=== PATIENT | female | born 1955 | race Caucasian/White ===

== ENCOUNTER → 2016-10-19 | Outpatient (CLI) | payer OTHER ==
--- NOTE | 2016-10-20 08:42 | MM ---
Reason for exam: screening (asymptomatic). Last mammogram was performed 1 year and 1 month ago. History: Patient is postmenopausal. Family history of premenopausal breast cancer in sister and premenopausal breast cancer in mother. Took estrogen for 6 years 6 months. Physical Findings: A clinical breast exam by your physician is recommended on an annual basis and results should be correlated with mammographic findings. MG Screening Mammo w CAD Bilateral CC and MLO view(s) were taken. Prior study comparison: September 18, 2015, bilateral MG screening mammo w CAD. September 07, 2014, bilateral MG screening mammo w CAD. The breast tissue is heterogeneously dense. This may lower the sensitivity of mammography. There is no discrete abnormality. ASSESSMENT: Negative, BI-RAD 1 RECOMMENDATION: Routine screening mammogram of both breasts in 1 year.
== END | disposition home or self-care (01) ==
LOC: RADMAMWWP 06:55
PROVIDERS: ATTEND Internal Medicine Endocrinology, Diabetes & Metabolism
DX: Z12.31 Encounter for screening mammogram for malignant neoplasm of breast (principal)

== ENCOUNTER → 2017-03-31 | Outpatient (CLI) | payer OTHER ==
[2017-03-31 07:37] LABS: ALT 25 U/L (9-52); AST 14 U/L (14-36); Anion Gap 7 mmol/L; Blood Urea Nitrogen 8 mg/dL (7-17); Calcium 8.9 mg/dL (8.4-10.2); Carbon Dioxide 28 mmol/L (22-30); Chloride 110 mmol/L (98-107); Cholesterol 163 mg/dL (<200); Glucose 103 mg/dL (74-99); HDL Cholesterol 51 mg/dL (40-60); Non-African American GFR(MDRD) >60 (>60 ml/min/1.73 sqM); Potassium 4.5 mmol/L (3.5-5.1); Sodium 145 mmol/L (137-145); Triglycerides 39 mg/dL (<150)
== END | disposition home or self-care (01) ==
LOC: LABWHC1 06:37
PROVIDERS: ATTEND Internal Medicine Endocrinology, Diabetes & Metabolism
DX: E78.00 Pure hypercholesterolemia, unspecified (principal); E06.3 Autoimmune thyroiditis; R73.9 Hyperglycemia, unspecified
CPT/HCPCS: 36415; 80048; 80061; 84436; 84443; 84450; 84460

== ENCOUNTER → 2017-12-07 | Outpatient (CLI) | payer OTHER ==
--- NOTE | 2017-12-08 12:20 | MM ---
Reason for exam: screening (asymptomatic). Last mammogram was performed 1 year and 2 months ago. History: Patient is postmenopausal and history of other cancer. Family history of premenopausal breast cancer in sister and premenopausal breast cancer in mother. Took estrogen for 6 years 6 months. Physical Findings: A clinical breast exam by your physician is recommended on an annual basis and results should be correlated with mammographic findings. MG Screening Mammo w CAD Bilateral CC and MLO view(s) were taken. Prior study comparison: October 19, 2016, bilateral MG screening mammo w CAD. September 18, 2015, bilateral MG screening mammo w CAD. The breast tissue is heterogeneously dense. This may lower the sensitivity of mammography. No suspicious abnormality. No significant changes when compared with prior studies. ASSESSMENT: Negative, BI-RAD 1 RECOMMENDATION: Routine screening mammogram of both breasts in 1 year.
== END ==
LOC: RADMAMWWP 07:03
PROVIDERS: ATTEND Family Medicine
DX: Z12.31 Encounter for screening mammogram for malignant neoplasm of breast (principal)
CPT/HCPCS: 77067

== ENCOUNTER → 2018-12-07 | Outpatient (CLI) | payer OTHER ==
--- NOTE | 2018-12-07 10:22 | CTL ---
EXAMINATION TYPE: CT Low Dose Lung DATE OF EXAM ORDERED: 12/07/2018 HISTORY: History tobacco use. Lung cancer screening CT DLP: 90.[address] CTDI: 2.7 mGy Automated exposure control for dose reduction was used. SCREENING VISIT: 1 COMPARISON: None TECHNIQUE: Low dose computed tomography scan was performed through the chest at 1 mm thick sections a nd reconstructed images in the coronal plane at mm thick sections. CT DIAGNOSTIC QUALITY: Satisfactory FINDINGS: LUNG NODULES: None. Right lung a nodule with a size of 2 mm. Nodule in the right upper lobe visualized with Nodule Type: Solid on image # CT Image slide number 64. LUNGS: COPD: Severity: None Fibrosis: Severity: Mild Lymph nodes: None Other findings: There may be some basilar atelectasis or scarring RIGHT PLEURAL SPACE: Effusion: None Calcification: None Thickening: None Pneumothorax: None LEFT PLEURAL SPACE: Effusion: None Calcification: None Thickening: None Pneumothorax: None HEART: Heart Size: Normal Coronary calcification: None Pericardial effusion: None OTHER FINDINGS: Upper abdomen: Small hiatal hernia Bony thorax: Thoracic spondylosis is present Supraclavicular region: Unremarkable Other: IMPRESSION: Benign FOLLOW UP CT CHEST RECOMMENDATION: 1 year follow-up CT LUNG RAD: 2
== END | disposition home or self-care (01) ==
LOC: RADCTMAIN 07:42
PROVIDERS: ATTEND Nurse Practitioner Family
DX: Z12.2 Encounter for screening for malignant neoplasm of respiratory organs (principal); Z87.891 Personal history of nicotine dependence

== ENCOUNTER → 2018-12-15 | Outpatient (CLI) | payer OTHER ==
--- NOTE | 2018-12-16 10:00 | MM ---
Reason for exam: screening (asymptomatic). Last mammogram was performed 1 year ago. History: Patient is postmenopausal and history of other cancer. Family history of premenopausal breast cancer in sister and premenopausal breast cancer in mother. Took estrogen for 6 years 6 months. Physical Findings: A clinical breast exam by your physician is recommended on an annual basis and results should be correlated with mammographic findings. MG Screening Mammo w CAD Bilateral CC and MLO view(s) were taken. Prior study comparison: December 07, 2017, bilateral MG screening mammo w CAD. October 19, 2016, bilateral MG screening mammo w CAD. The breast tissue is heterogeneously dense. This may lower the sensitivity of mammography. No suspicious abnormality. No significant changes when compared with prior studies. ASSESSMENT: Negative, BI-RAD 1 RECOMMENDATION: Routine screening mammogram of both breasts in 1 year.
== END ==
LOC: RADMAMWWP 07:03
PROVIDERS: ATTEND Family Medicine
DX: Z12.31 Encounter for screening mammogram for malignant neoplasm of breast (principal)
CPT/HCPCS: 77067

== ENCOUNTER → 2019-06-01 | Outpatient (CLI) | payer OTHER ==
[2019-06-01 12:09] LABS: African American GFR (CKD) 106.1 (60.0-200.0); Albumin 4.3 g/dL (3.80-4.90); Albumin/Globulin Ratio 2.05 (1.60-3.17); Anion Gap 4.4 mmol/L (4.00-12.00); BUN/Creat Ratio 12.86 Ratio (12.00-20.00); Calcium 9.2 mg/dL (8.7-10.3); Carbon Dioxide 29.6 mmol/L (21.6-31.8); Globulin 2.1 g/dL (1.6-3.3); LDL Cholesterol,Calculated 180.2 mg/dL (0.0-131.0); Potassium 4.3 mmol/L (3.5-5.5); Total Bilirubin 0.4 mg/dL (0.3-1.2); Total Protein 6.4 g/dL (6.2-8.2); VLDL Calculation 28.8 mg/dL (5.00-40.00)
[2019-06-01 12:17] LABS: T4, Free (Free Thyroxine) 0.9 ng/dL (0.80-1.80)
[2019-06-01 13:38] LABS: Hemoglobin A1C 5.5 % (4.0-6.0)
== END | disposition home or self-care (01) ==
LOC: LABWHC1 07:12
PROVIDERS: ATTEND Internal Medicine
DX: E06.3 Autoimmune thyroiditis (principal); E78.00 Pure hypercholesterolemia, unspecified; R73.09 Other abnormal glucose
CPT/HCPCS: 36415; 80053; 80061; 83036; 84439; 84443

== ENCOUNTER → 2019-11-16 | Outpatient (CLI) | payer MEDICARE ==
[2019-11-16 11:52] LABS: Chol/HDL Ratio 5.24; LDL Cholesterol,Calculated 184.4 mg/dL (0.0-131.0); VLDL Calculation 23.6 mg/dL (5.00-40.00)
[2019-11-16 12:01] LABS: T4, Free (Free Thyroxine) 1.2 ng/dL (0.80-1.80)
== END | disposition home or self-care (01) ==
LOC: LABWHC1 06:49
PROVIDERS: ATTEND Internal Medicine
DX: E06.3 Autoimmune thyroiditis (principal); E78.00 Pure hypercholesterolemia, unspecified
CPT/HCPCS: 36415; 80061; 84439; 84443

== ENCOUNTER → 2020-03-13 | Outpatient (CLI) | payer MEDICARE ==
--- NOTE | 2020-03-14 10:18 | MM ---
Reason for exam: screening (asymptomatic). Last mammogram was performed 1 year and 3 months ago. History: Patient is postmenopausal and history of other cancer. Family history of premenopausal breast cancer in sister and premenopausal breast cancer in mother at age 30. Took estrogen for 6 years 6 months. Physical Findings: A clinical breast exam by your physician is recommended on an annual basis and results should be correlated with mammographic findings. MG Screening Mammo w CAD Bilateral CC and MLO view(s) were taken. Prior study comparison: December 15, 2018, bilateral MG screening mammo w CAD. December 07, 2017, bilateral MG screening mammo w CAD. The breast tissue is heterogeneously dense. This may lower the sensitivity of mammography. Benign appearing calcifications in the right breast and stable left lateral middle depth asymmetry. No suspicious abnormality. No significant changes when compared with prior studies. ASSESSMENT: Benign, BI-RAD 2 RECOMMENDATION: Routine screening mammogram of both breasts in 1 year.
== END | disposition home or self-care (01) ==
LOC: RADMAMWWP 07:05
PROVIDERS: ATTEND Internal Medicine
DX: Z12.31 Encounter for screening mammogram for malignant neoplasm of breast (principal); Z80.3 Family history of malignant neoplasm of breast
CPT/HCPCS: 77067

== ENCOUNTER → 2021-04-03 | Outpatient (CLI) | payer MEDICARE ==
--- NOTE | 2021-04-03 11:09 | MM ---
Reason for exam: screening (asymptomatic). Last mammogram was performed 1 year and 1 month ago. History: Patient is postmenopausal and history of other cancer. Family history of premenopausal breast cancer in sister and premenopausal breast cancer in mother at age 30. Took estrogen for 6 years 6 months. Physical Findings: A clinical breast exam by your physician is recommended on an annual basis and results should be correlated with mammographic findings. MG Screening Mammo w CAD Bilateral CC and MLO view(s) were taken. Prior study comparison: March 13, 2020, bilateral MG screening mammo w CAD. December 15, 2018, bilateral MG screening mammo w CAD. There are scattered fibroglandular densities. ASSESSMENT: Negative, BI-RAD 1 RECOMMENDATION: Routine screening mammogram of both breasts in 1 year.
== END | disposition home or self-care (01) ==
LOC: RADMAMWWP 07:09
PROVIDERS: ATTEND Family Medicine
DX: Z12.31 Encounter for screening mammogram for malignant neoplasm of breast (principal); Z78.0 Asymptomatic menopausal state; Z80.3 Family history of malignant neoplasm of breast
CPT/HCPCS: 77067

== ENCOUNTER → 2022-01-22 | Outpatient (CLI) | payer MEDICARE ==
--- NOTE | 2022-01-22 08:15 | CTL ---
EXAMINATION TYPE: CT Low Dose Lung DATE OF EXAM ORDERED: 01/22/2022 HISTORY: Tobacco use. Lung cancer screening CT DLP: [address] CTDI: 2.33 mGy Automated exposure control for dose reduction was used. SCREENING VISIT: Follow-up COMPARISON: CT dated 12/07/2018 TECHNIQUE: Low dose computed tomography scan was performed through the chest at 1 mm thick sections a nd reconstructed images in multiple planes at 1 mm and [address] DIAGNOSTIC QUALITY: Satisfactory FINDINGS: LUNG NODULES: Right upper lobe solid [address] image 72. This nodule is stable. LUNGS: COPD: Severity: None Fibrosis: Severity: None Lymph nodes: No pathologically enlarged Other findings: Minimal bilateral basal linear pulmonary atelectasis. RIGHT PLEURAL SPACE: Effusion: None Calcification: None Thickening: None Pneumothorax: None LEFT PLEURAL SPACE: Effusion: None Calcification: None Thickening: None Pneumothorax: None HEART: Heart Size: Normal Coronary Calcification: None Pericardial Effusion: No sizable effusion OTHER FINDINGS: Upper abdomen: None Bony thorax: No aggressive bone lesion. Supraclavicular region: None Other: Scattered arterial atherosclerotic calcifications. The pulmonary trunk measures 3.3 cm which m ay suggest pulmonary hypertension. IMPRESSION: Stable 3 mm right upper lobe nodule. No other definite lung nodule identified. Incidental findings as described above. CT LUNG RAD AND CT CHEST RECOMMENDATION: Lung-Rad 2 Benign Appearance or Behavior: Continue annual sc reening with LDCT in 12 months. S Modifier (other clinically significant findings): None
== END | disposition home or self-care (01) ==
LOC: RADCTMAIN 06:49
PROVIDERS: ATTEND Family Medicine
DX: Z12.2 Encounter for screening for malignant neoplasm of respiratory organs (principal); R91.8 Other nonspecific abnormal finding of lung field; Z87.891 Personal history of nicotine dependence
CPT/HCPCS: 71271

== ENCOUNTER → 2022-02-25 | Outpatient (CLI) | payer MEDICARE ==
--- NOTE | 2022-02-25 12:33 | CA ---
Transthoracic Echo Report Name: Myron Knight Age: 66 Gender: F : 1955 Exam Date: 02/25/2022 08:30 Exam Location: [facility] Ht (in): 64 Wt (lb): 170 Ordering Physician: Sejal Lewis MD Attending/Referring Phys: [id number], Debbie Cut In Station Operator Zuri Pollard, HAIR Procedure CPT: Indications: I28.8 OTHER DISEASES OF PULMONARY VESSELS Cardiac Hx: Technical Quality: Fair Contrast 1: Total Dose (mL): Contrast 2: Total Dose (mL): MEASUREMENTS (Male / Female) Normal Values 2D ECHO LV Diastolic Diameter PLAX 4.4 cm 4.2 - 5.9 / 3.9 - 5.3 cm LV Systolic Diameter PLAX 3.1 cm IVS Diastolic Thickness 1.3 cm 0.6 - 1.0 / 0.6 - 0.9 cm LVPW Diastolic Thickness 1.5 cm 0.6 - 1.0 / 0.6 - 0.9 cm LV Relative Wall Thickness 0.6 RV Internal Dim ED PLAX 3.4 cm LA Volume 28.7 cm??? 18 - 58 / 22 - 52 cm??? M-MODE Aortic Root Diameter MM 3.0 cm DOPPLER AV Peak Velocity 156.2 cm/s AV Peak Gradient 9.8 mmHg LVOT Peak Velocity 137.4 cm/s LVOT Peak Gradient 7.6 mmHg MV Area PHT 4.0 cm??? Mitral E Point Velocity 55.4 cm/s Mitral A Point Velocity 71.2 cm/s Mitral E to A Ratio 0.8 MV Deceleration Time 191.7 ms TR Peak Velocity 195.7 cm/s TR Peak Gradient 15.3 mmHg Right Ventricular Systolic Press 20.4 mmHg FINDINGS Left Ventricle Normal left ventricular systolic function with no obvious regional wall motion abnormalities. Normal left ventricular diastolic filling pattern. Left ventricular cavity size normal. Mildly increased left ventricular wall thickness. Left ventricular ejection fraction is estimated at 55- 60 %. Right Ventricle Mild right ventricular dilatation. Right ventricular systolic pressure within normal limits. Right Atrium Right atrium not well visualized. Left Atrium Normal left atrial size. No evidence for an atrial septal defect. Mitral Valve No mitral stenosis, regurgitation or prolapse. Aortic Valve Trileaflet aortic valve. No aortic valve stenosis or regurgitation. Tricuspid Valve Mild tricuspid regurgitation. Pulmonic Valve Structurally normal pulmonic valve. Trace pulmonic regurgitation. Pericardium No pericardial effusion. Aorta Normal size aortic root and proximal ascending aorta. CONCLUSIONS Normal left ventricular dimension and systolic function Please see above for further details Previewed by: Dr. Khadar Moreira MD (Electronically Signed) Final Date: 25 Feb 2022 12:32
== END | disposition home or self-care (01) ==
LOC: RADECHMAIN 08:26
PROVIDERS: ATTEND Family Medicine
DX: I07.1 Rheumatic tricuspid insufficiency (principal); I37.1 Nonrheumatic pulmonary valve insufficiency
CPT/HCPCS: 93306

== ENCOUNTER → 2022-04-06 | Outpatient (CLI) | payer MEDICARE ==
--- NOTE | 2022-04-07 19:56 | MM ---
Reason for Exam: Screening (asymptomatic). Last screening mammogram was performed 12 month(s) ago. Patient History: Menarche at age 13. First Full-Term at age 19. Left ovary removed at age 42. Right ovary removed at age 42. Hysterectomy at age 42. Postmenopausal. Other cancer. Estrogen for 6 years, 6 months. Sister had breast cancer. Mother had breast cancer, age 30. Risk Values: Nicolette 5 year model risk: 6.2%. NCI Lifetime model risk: 19.9%. Prior Study Comparison: 12/15/2018 Bilateral Screening Mammogram, [facility]. 03/13/2020 Bilateral Screening Mammogram, [facility]. 04/03/2021 Bilateral Screening Mammogram, [facility]. Tissue Density: There are scattered fibroglandular densities. Findings: Analyzed By CAD. No significant change from prior exams. Overall Assessment: Negative, BI-RAD 1 Management: Screening Mammogram of both breasts in 1 year. 1. We note a 20% lifetime risk for the development of breast cancer. Correlate as to if the patient will qualify for alternating screening at 6 month intervals with mammogram and MRI. Also, consider genetic testing. 2. Patient should continue monthly self breast exams. 3. A clinical breast exam by your physician is recommended on an annual basis. Electronically signed and approved by: Cadence Santillan M.D. Radiologist
== END | disposition home or self-care (01) ==
LOC: RADMAMWWP 07:01
PROVIDERS: ATTEND Family Medicine
DX: Z12.31 Encounter for screening mammogram for malignant neoplasm of breast (principal); Z78.0 Asymptomatic menopausal state; Z85.3 Personal history of malignant neoplasm of breast; Z80.3 Family history of malignant neoplasm of breast
CPT/HCPCS: 77067

== ENCOUNTER → 2022-08-20 | Outpatient (CLI) | payer MEDICARE ==
--- NOTE | 2022-08-20 15:56 | MR ---
EXAMINATION TYPE: MR shoulder LT wo con DATE OF EXAM: 08/20/2022 COMPARISON: Outside left shoulder x-ray July 14, 2022 HISTORY: Left shoulder pain with difficulty raising arm overhead for a few months TECHNIQUE: Multiplanar, multisequence imaging of the left shoulder is performed without contrast. FINDINGS: Rotator Cuff: Distal supraspinatus and infraspinatus tendons are intact. Subscapularis tendon is inta ct. Rotator cuff muscle bulk is preserved. Acromioclavicular Joint: Mild to moderate narrowing and superior capsular hypertrophy. Type II downsl oping acromion with loss of underlying fat plane anteriorly sagittal image 10. Glenohumeral Joint: Small to moderate size joint effusion. No significant spurring or narrowing. Labrum: Increased signal superior labrum consistent with degenerative tearing. Biceps Tendon: The long head of biceps is in normal location within bicipital groove. Bone marrow signal: No focal abnormal marrow signal is appreciated. Other: No additional significant abnormality is appreciated. IMPRESSION: Degenerative changes as detailed above. Degenerative labral tear. Type II downsloping acr omion with suggestion of underlying impingement. Correlate clinically. No rotator cuff tear seen.
== END | disposition home or self-care (01) ==
LOC: RADMRIMAIN 12:57
PROVIDERS: ATTEND Orthopaedic Surgery
DX: M25.512 Pain in left shoulder (principal)

== ENCOUNTER → 2022-10-16 | Outpatient (CLI) | payer MEDICARE ==
[2022-10-16 15:26] LABS: Basophils # (A) 0.06 X 10*3/uL (0.00-0.10); Eosinophils # (A) 0.08 X 10*3/uL (0.04-0.35); Eosinophils % (A) 1.3 %; HGB 12.9 g/dL (12.0-15.0); Immature Grans, Automated 0.3 %; Lymphocytes # (A) 2.24 X 10*3/uL (0.90-5.00); Lymphocytes % (A) 36.7 %; MCH 30.6 pg (27.0-32.0); MCHC 31.5 g/dL (32.0-37.0); MCV 97.2 fL (80.0-97.0); Mean Platelet Volume 11.1 fL (9.5-12.2); Monocytes # (A) 0.61 X 10*3/uL (0.20-1.00); NRBC Per 100 WBC 0 /100 WBCS (0.0-0.0); Neutrophils # (A) 3.09 X 10*3/uL (1.80-7.70); Neutrophils % (A) 50.7 %; Platelet Count 303 X 10*3/uL (140-440); RBC 4.22 X 10*6/uL (4.10-5.20); RDW 12.4 % (11.5-14.5)
[2022-10-16 15:28] LABS: Anion Gap 8.4 mmol/L (10.00-18.00); Carbon Dioxide 27.2 mmol/L (20.0-27.5)
== END ==
LOC: LABPAT 07:24
PROVIDERS: ATTEND Orthopaedic Surgery
DX: Z01.818 Encounter for other preprocedural examination (principal); M75.42 Impingement syndrome of left shoulder; R94.31 Abnormal electrocardiogram [ECG] [EKG]
CPT/HCPCS: 80051; 85025; 93005

== ENCOUNTER 2022-10-29 07:42 | Day surgery (SDC) | payer MEDICARE ==
[2022-10-26 11:42] VITALS: BMI 28.3
--- NOTE | 2022-10-28 20:23 | HP ---
HISTORY AND PHYSICAL DATE OF SURGERY: 10/29/2022. HISTORY OF PRESENT ILLNESS: Myron Knight is a 67-year-old patient seen with progressive left shoulder pain. Treatment options were discussed with her. She elected to proceed with left shoulder arthroscopy. Consent was obtained. PAST MEDICAL HISTORY: Hypercholesterolemia, hypothyroidism. PAST SURGICAL HISTORY: Hysterectomy. DAILY MEDICATIONS: Synthroid. ALLERGIES: None. SOCIAL HISTORY: She denies tobacco use. PHYSICAL EVALUATION OF THE LEFT SHOULDER: Flexion is 140 degrees, abduction is 90 degrees, external rotation is 40 degrees with pain and weakness. Tenderness along the anterolateral acromion and rotator cuff insertion site. Impingement is positive at 90 degrees. Drop-arm sign is positive. Distal neurovascular exam is intact. RADIOGRAPHS: Radiographs of the left shoulder revealed a type 2 acromion, acromioclavicular joint osteoarthritis and cystic changes of the tuberosity. MRI left shoulder revealed a labral tear, type 2 acromion and impingement. IMPRESSION: 1. Left shoulder impingement with labral tear. 2. Left shoulder acromioclavicular joint osteoarthritis. 3. Hypothyroidism. PLAN: Left shoulder arthroscopy with subacromial decompression, Lakeisha procedure and debridement. MMODL / IJN: [id number] /
[~2022-10-29 07:42] MED LIST: DEXAMETHASONE SOD PHOSPHATE 4 MG/ML 1 ML VIAL IV ONE; HYDROmorphone 0.5 MG/0.5 ML SYRINGE IVP PRN; LACTATED RINGERS 1,000 ML IV SCH; LIDOCAINE 1% (10MG/ML) FOR IV START INTRADERMA PRN; MIDAZOLAM 2 MG/2 ML VIAL IV PRN; ONDANSETRON 4 MG/2 ML VIAL IVP ONE
[2022-10-29] MEDS ORDERED: MIDAZOLAM 2 MG/2 ML VIAL IVP ONE (08:44)
[2022-10-29] MEDS ORDERED: ROCURONIUM 10 MG/ML (5 ML VIAL) IV ONE (08:54)
[2022-10-29] MEDS ORDERED: ROPIVACAINE 5 MG/ML 30 ML VIAL ONE (08:54)
[2022-10-29] MEDS ORDERED: PROPOFOL 10 MG/ML 20 ML VIAL IV ONE (08:54)
[2022-10-29] MEDS ORDERED: DEXAMETHASONE SOD PHOSPHATE 4 MG/ML 1 ML VIAL ONE (08:54)
[2022-10-29] MEDS ORDERED: SUCCINYLCHOLINE CHLORIDE 200 MG/10 ML VIAL IV ONE (08:54)
[2022-10-29] MEDS ORDERED: LIDOCAINE 2% INJ 20 MG/ML (2 ML VIAL) ONE (08:54)
[2022-10-29] MEDS ORDERED: NEOSTIGMINE 1 MG/ML 10 ML VIAL ONE (08:54)
[2022-10-29] MEDS ORDERED: GLYCOPYRROLATE 0.2 MG/ML 2 ML VIAL ONE (08:54)
[2022-10-29] MEDS ORDERED: MIDAZOLAM 2 MG/2 ML VIAL ONE (08:54)
--- NOTE | 2022-10-29 10:19 | P.OP ---
Date of Procedure: 10/29/22 Preoperative Diagnosis: Left shoulder impingement Postoperative Diagnosis: 1. Left shoulder rotator cuff tear 2. Left shoulder impingement Procedure(s) Performed: 1. Left shoulder arthroscopic rotator cuff repair 2. Left shoulder arthroscopic subacromial decompression Implants: 15.5 Arthrex swivel lock anchor Anesthesia: GETA, regional (Interscalene block) Surgeon: Mauri Whitt Braille Translator #1: Dinesh David Estimated Blood Loss (ml): 10 Pathology: none sent Condition: stable Disposition: PACU Indications for Procedure: 67-year-old patient seen with progressive left shoulder pain. After having treatment options discussed, she elected to proceed with arthroscopy. Operative Findings: See description of procedure Description of Procedure: Patient underwent an interscalene block by department of anesthesia. The patient was then taken to the operative suite. The patient underwent a general anesthetic by the department of anesthesia. The patient was placed into a lateral position and secured. There was appropriate padding of the bony prominence. Left shoulder was then prepped and draped in normal sterile orthopedic fashion. We placed the extremity in 10 pounds of longitudinal traction. A posterior incision was now made for a posterior working portal site. The trocar and cannula were inserted into the glenohumeral joint. Arthroscopy was initiated. Spinal needle was now inserted anteriorly, to ascertain the anterior working portal site. An incision was now made in that area, a trocar was inserted followed by a probe. There were mild grade 1 chondromalacia changes of the glenoid fossa without osteochondral tears. The labrum was probed and was found to be stable. The biceps appeared stable to the anchor. At this point instruments removed from glenohumeral joint. Utilizing the posterior working portal site, the trocar and cannula were inserted into the subacromial space. Arthroscopy initiated. I made an incision 2 fingerbreadths lateral to the acromion. I introduced my trocar followed by my ArthroCare ablator. I now began ablating thick subacromial bursal tissue, which exposed the undersurface of the anterior acromion. There was diminished subacromial space. There was a very prominent anterior acromion. A motorized bur was introduced and a subacromial decompression was performed. I also excised some osteophytes off the inferior aspect of the distal clavicle. The AC joint was visualized and noted to be moderately arthritic, I did not think enough toward a Lakeisha procedure. I turned my attention to the rotator cuff tendon. There was a full-thickness perforation along the distal supraspinatus area. I abraded the margins getting down to stable tendon tissue. The defect/tear measuring approximately 1.5 cm and was freely mobile over the footprint. I abraded the footprint with a motorized bur. With the assistance of Rey REZA past 3 everted mattress sutures through good bites of rotator cuff tendon. I now punched a hole in the footprint area for insertion of an anchor. All 6 limbs of suture were passed through the eyelet of a 5.5 Arthrex swivel lock anchor. The eyelet was now placed into the pre-punched hole. I held it in position while Rey REZA tensioned all 6 limbs of suture and deployed the anchor with good fixation noted. All residual suture limbs were now clipped. We had good compression of the tendon along the entire footprint. Instruments now removed from the portal sites. All portal sites were approximated with nylon suture. Sterile dressings were applied followed by a shoulder sling. Dinesh REZA assisted in this complex case. The patient was awakened, transferred to a bed, and taken to recovery in stable condition.
[2022-10-29 10:25] VITALS: TEMP 96.9
[2022-10-29 10:46] VITALS: RESP 16
[2022-10-29 11:41] VITALS: BP 118/79; PULSE 72
--- NOTE | 2022-10-29 20:55 | P.ANPRN ---
Procedure Note - Anesthesia - Nerve Block Performed Left Interscalene Single Time Out Performed: Yes Date of Procedure: 10/29/22 Procedure Start Time: 08:43 Procedure Stop Time: 08:47 Location of Patient: PreOp Indication: Acute Post-Operative Pain, Requested by Surgeon Sedation Type: Sedate with meaningful contact maintained Preparation: Sterile Prep Position: Supine Needle Types: Pajunk Needle Gauge: 21 Ultrasound used to visualize needle placement: Yes Ultrasound used to observe medication spread: Yes Blood Aspirated: No Pain Paresthesia on Injection Noted: No Resistance on Injection: Normal Image Stored and Saved: Yes Events: Uneventful and Well Tolerated (ropi .5% 20cc plus dexamethasone 4mg)
== END 2022-10-29 12:05 | disposition home or self-care (01) ==
LOC: OR 07:42
PROVIDERS: ATTEND Orthopaedic Surgery
DX: M75.42 Impingement syndrome of left shoulder (principal); M75.102 Unspecified rotator cuff tear or rupture of left shoulder, not specified as traumatic; E03.9 Hypothyroidism, unspecified; E78.00 Pure hypercholesterolemia, unspecified; Z90.710 Acquired absence of both cervix and uterus
CPT/HCPCS: 29827; 29826; 64415; 76942; C1713; J2250; J0330; J1100; J2710; J2405; J0690; J2795; J2704; J2001

== ENCOUNTER 2023-01-28 06:58 | Emergency (ER) | payer MEDICARE ==
[2023-01-28 07:23] VITALS: BP 129/95; PULSE 74; RESP 20; TEMP 98
[2023-01-28] MEDS ORDERED: ACETAMINOPHEN TAB 500 MG TAB PO STA (07:38)
--- NOTE | 2023-01-28 07:46 | ED ---
Extremity Problem HPI - General Chief complaint: Extremity Problem,Nontraumatic Stated complaint: Pain in left wrist/shoulder pain right Time Seen by Provider: 01/28/23 07:25 Source: patient, RN notes reviewed, old records reviewed Mode of arrival: ambulatory Limitations: no limitations - History of Present Illness Initial comments: This is a nontoxic-appearing pleasant 67-year-old female that presents to the emergency room with left hand pain and right shoulder pain for the past few days. Patient states her right shoulder feels similar to when she had a rotator cuff tear in her left shoulder in October this year which she had surgery for. She states that she has been doing exercises with her hands and arms. Denies any inuries. No fevers. No swelling. MD Complaint: extremity pain -: days(s) Location: left (thenar surface), right (shoulder) Radiation: proximal (hand) Severity scale (1-10): 6 - Related Data Home Medications Medication Instructions Recorded Confirmed Levothyroxine Sodium [Synthroid] 112 mcg PO QAM 05/31/14 10/29/22 Simvastatin 40 mg PO HS 05/31/14 10/29/22 Citalopram Hydrobromide 5 mg PO DAILY 10/26/22 10/29/22 [Citalopram HBr] buPROPion HCL [buPROPion HCL XL] 150 mg PO DAILY 10/26/22 10/29/22 Previous Rx's Medication Instructions Recorded HYDROcodone/APAP 7.5-325MG [[place] 1 each PO Q6HR PRN #21 tab 10/29/22 7.5] Acetaminophen [Acetaminophen 8 hr] 650 mg PO Q8H PRN #60 tab 01/28/23 Allergies Allergy/AdvReac Type Severity Reaction Status Date / Time No Known Allergies Allergy Verified 01/28/23 07:23 Review of Systems ROS Statement: Those systems with pertinent positive or pertinent negative responses have been documented in the HPI. ROS Other: All systems not noted in ROS Statement are negative. Past Medical History Past Medical History: Cancer, Hyperlipidemia, Thyroid Disorder Additional Past Medical History / Comment(s): SKIN CANCER. History of Any Multi-Drug Resistant Organisms: None Reported Past Surgical History: Hysterectomy Additional Past Surgical History / Comment(s): Colonocopy Past Anesthesia/Blood Transfusion Reactions: Family History of Problems w/ Anesthesia Additional Past Anesthesia/Blood Transfusion Reaction / Comment(s): MOTHER HAS ISSUES WITH HER K+, CONFUSION, AGITATION. Past Psychological History: Anxiety Smoking Status: Never smoker Past Alcohol Use History: Occasional Past Drug Use History: None Reported - Past Family History Mother Family Medical History: Cancer Sister(s) Family Medical History: Cancer General Exam Limitations: no limitations General appearance: alert, in no apparent distress Head exam: Present: atraumatic Eye exam: Present: normal appearance. Absent: scleral icterus, conjunctival injection, periorbital swelling Respiratory exam: Absent: respiratory distress, accessory muscle use Cardiovascular Exam: Present: regular rate Right Shoulder Exam: Present: tenderness, other (positive Jobes supraspinatus test, Neer's sign). Absent: full ROM, swelling, abrasion, laceration, ecchymosis, deformity, crepitus, dislocation, erythema, tenderness over AC joint Upper Arm exam: Absent: tenderness, swelling Elbow exam: Present: full ROM. Absent: tenderness, swelling Vascular: Present: normal capillary refill, radial pulse. Absent: vascular compromise Left Hand Wrist exam: Present: full ROM, tenderness (thenar surface). Absent: swelling, abrasion, laceration, ecchymosis, deformity, crepitus, dislocation, erythema, amputation, nail avulsion, subungual hematoma Neuro motor exam: Present: wrist extension intact Neurosensory exam: Present: radial nerve intact, ulnar nerve intact, median nerve intact Vascular: Present: normal capillary refill, radial pulse. Absent: vascular co mpromise Neurological exam: Present: alert, oriented X3, normal gait Psychiatric exam: Present: normal affect, normal mood Skin exam: Present: warm, dry, normal color. Absent: cyanosis, diaphoretic, petechiae, pallor Course Vital Signs 01/28/23 07:21 Temperature 98 F Pulse Rate 74 Respiratory 20 Rate Blood Pressure 129/95 O2 Sat by Pulse 99 Oximetry Medical Decision Making - Medical Decision Making Patient presents with right shoulder pain and left hand thenar surface pain. No evidence of swelling or erythema. Patient does have good range of motion of the left hand. Pain with palpation to the thenar surface. Right shoulder positive Neer's sign and Eula's sign consistent with injury to the rotator cuff. Patient states pain similar to when she had rotator cuff surgery on the left which was repaired in October [address] Velarde. Patient is neurovascularly intact with normal capillary refill and radial pulses bilaterally. Full range of motion of the left hand. Limited range of motion right shoulder She denies any fevers. No trauma. She states that she has been doing some exercises at home. Left hand pain may be due to overuse. Right shoulder pain may be related to impingement vs rotator cuff injury. Patient was directed to continue Tylenol and ibuprofen. Follow up with her primary care doctor and orthopedic doctor next week. Case discussed with Dr. Live. Was pt. sent in by a medical professional or institution (, [employer], IN [employer]CHO[employer] SUSPENSION AIDE, urgent care, hospital, or intermediate...) When possible be specific @ -No Did you speak to anyone other than the patient for history (EMS, parent, family, police, friend...)? What history was obtained from this source @ -No Did you review nursing and triage notes (agree or disagree)? Why? @ -I reviewed and agree with nursing and triage notes Were old charts reviewed (outside hosp., previous admission, EMS record, old EKG, old radiological studies, urgent care reports/EKG's, intermediate records)? Report findings @ -I did review Dr. Whitt notes regarding patient's left rotator cuff injury Differential Diagnosis (chest pain, altered mental status, abdominal pain women, abdominal pain men, vaginal bleeding, weakness, fever, dyspnea, syncope, headache, dizziness, GI bleed, back pain, seizure, CVA, palpatations, mental health, musculoskeletal)? @ -Shoulder impingement, dislocation, fracture, rotator cuff tear, Left hand overuse injury, arthritis, carpal tunnel, fracture, cellulitis EKG interpreted by me (3pts min.). @ -n/a X-rays interpreted by me (1pt min.). @ -None done CT interpreted by me (1pt min.). @ -None done U/S interpreted by me (1pt. min.). @ -None done What testing was considered but not performed or refused? (CT, X-rays, U/S, labs)? Why? @ -None What meds were considered but not given or refused? Why? @ -Patient offered Toradol and declined Did you discuss the management of the patient with other professionals (professionals i.e. , [employer], [employer]ENS[employer] AIDE, lab, RT, psych nurse, high school social science teacher, corporate law specialist, teacher, chief procurement officer, case finishing machine adjuster)? Give summary @ -No Was smoking cessation discussed for >3mins.? @ -No Was critical care preformed (if so, how long)? @ -No Were there social determinants of health that impacted care today? How? (Homelessness, low income, unemployed, alcoholism, drug addiction, transportation, low edu. Level, literacy, decrease access to med. care, long-term, rehab)? @ -No Was there de-escalation of care discussed even if they declined (Discuss DNR or withdrawal of care, Hospice)? DNR status @ -No What co-morbidities impacted this encounter? (DM, HTN, Smoking, COPD, CAD, Cancer, CVA, ARF, Chemo, Hep., AIDS, mental health diagnosis, sleep apnea, morbid obesity)? @ -None Was patient admitted / discharged? Hospital course, mention meds given and route, prescriptions, significant lab abnormalities, going to OR and other pertinent info. @ -Discharged Undiagnosed new problem with uncertain prognosis? @ -No Drug Therapy requiring intensive monitoring for toxicity (Heparin, Nitro, Insulin, Cardizem)? @ -No Were any procedures done? @ -No Diagnosis/symptom? @ -Left hand pain, internal derangement right shoulder Acute, or Chronic, or Acute on Chronic? @ -Acute Uncomplicated (without systemic symptoms) or Complicated (systemic symptoms)? @ -Uncomplicated Side effects of treatment? @ -No Exacerbation, Progression, or Severe Exacerbation? @ -No Poses a threat to life or bodily function? How? (Chest pain, [place], PR, pneumonia, PE, COPD, DKA, ARF, appy, cholecystitis, CVA, Diverticulitis, Homicidal, Suicidal, threat to staff... and all critical care pts) @ -No Disposition Clinical Impression: Hand pain, left, Internal derangement of right shoulder Disposition: HOME SELF-CARE Condition: Good Instructions (If sedation given, give patient instructions): Arthralgia (ED), Shoulder Pain (ED) Additional Instructions: Following up with your primary care doctor or orthopedic doctor within the next week. Continue taking Tylenol and ibuprofen for pain. Return to the emergency room with any new or concerning symptoms including fever, redness or increased pain. Prescriptions: Acetaminophen [Acetaminophen 8 hr] 650 mg PO Q8H PRN #60 tab PRN Reason: Pain Is patient prescribed a controlled substance at d/c from ED?: No Referrals: Sejal Lewis III, MD [Primary Care Provider] - 1-2 days Time of Disposition: 07:43
== END 2023-01-28 07:54 | disposition home or self-care (01) ==
LOC: EC 06:58
DX: M24.9 Joint derangement, unspecified (principal); M79.642 Pain in left hand; E78.5 Hyperlipidemia, unspecified; F41.9 Anxiety disorder, unspecified; E07.9 Disorder of thyroid, unspecified; Z79.890 Hormone replacement therapy; Z79.899 Other long term (current) drug therapy
CPT/HCPCS: 99283

== ENCOUNTER → 2023-03-05 | Outpatient (CLI) | payer MEDICARE ==
--- NOTE | 2023-03-06 04:56 | MR ---
EXAMINATION TYPE: MR shoulder RT wo con DATE OF EXAM: 03/05/2023 COMPARISON: Outside right shoulder x-ray February 19, 2023 HISTORY: Right shoulder pain for 3 weeks. TECHNIQUE: Multiplanar, multisequence imaging of the right shoulder is performed without contrast. FINDINGS: Rotator Cuff: Distal supraspinatus and infraspinatus tendons are intact. Rotator cuff muscle bulk is preserved. Acromioclavicular Joint: Mild narrowing with moderate capsular hypertrophy. Type II downsloping acrom ion. Glenohumeral Joint: Small to moderate size joint effusion. No significant spurring. Narrowing is pres ent. Labrum: The labrum appears grossly intact given limitation of non-arthrogram study. Biceps Tendon: The long head of biceps is in normal location within bicipital groove. Bone marrow signal: Some subchondral cystic change lateral aspect of the humeral head. Other: Increased fluid signal subdeltoid/subacromial bursa. IMPRESSION: No rotator cuff or labral tear. Degenerative changes as detailed above. Subdeltoid/subacr omial bursitis is present.
== END | disposition home or self-care (01) ==
LOC: RADMRIMAIN 20:15
PROVIDERS: ATTEND Orthopaedic Surgery
DX: M19.011 Primary osteoarthritis, right shoulder (principal); M75.51 Bursitis of right shoulder

== ENCOUNTER → 2023-04-21 | Outpatient (CLI) | payer MEDICARE ==
--- NOTE | 2023-04-22 08:38 | MM ---
Reason for Exam: Screening (asymptomatic). Last mammogram was performed 1 year(s) and 1 month(s) ago. Patient History: Menarche at age 13. First Full-Term at age 19. Left ovary removed at age 42. Right ovary removed at age 42. Hysterectomy at age 42. Postmenopausal. Other cancer. Estrogen for 6 years, 6 months. Maternal grandmother had breast cancer under age 50. Sister had breast cancer under age 50. Mother had breast cancer, age 30. Mother had breast cancer, age 80. Risk Values: Nicolette 5 year model risk: 6.3%. NCI Lifetime model risk: 19.2%. Prior Study Comparison: 10/19/2016 Bilateral Screening Mammogram, [facility]. 12/07/2017 Bilateral Screening Mammogram, [facility]. 12/15/2018 Bilateral Screening Mammogram, [facility]. 03/13/2020 Bilateral Screening Mammogram, [facility]. 04/03/2021 Bilateral Screening Mammogram, [facility]. 04/06/2022 Bilateral MG screening mammo w CAD, [facility]. Tissue Density: The breast tissue is heterogeneously dense. This may lower the sensitivity of mammography. Findings: Analyzed By CAD. No suspicious microcalcifications identified. Asymmetric density outer left CC view 8.2 cm from the nipple. Additional views are recommended. Overall Assessment: Incomplete: need additional imaging evaluation, BI-RAD 0 Management: Diagnostic Mammogram of the left breast. . Patient should continue monthly self-breast exams. A clinical breast exam by your physician is recommended on an annual basis. This exam should not preclude additional follow-up of suspicious palpable abnormalities. Note on Nicolette scores and lifetime risk: 1. A Nicolette score greater than 3% is considered moderate risk. If this is the case, consider specialist referral to assess eligibility for a risk reducing agent. 2. If overall lifetime risk for the development of breast cancer is 20% or higher, the patient may qualify for future screening with alternating mammogram and breast MRI. Electronically signed and approved by: Javid Mitchell M.D. Radiologis
== END | disposition home or self-care (01) ==
LOC: RADMAMWWP 07:09
PROVIDERS: ATTEND Family Medicine
DX: Z12.31 Encounter for screening mammogram for malignant neoplasm of breast (principal); Z78.0 Asymptomatic menopausal state; Z80.3 Family history of malignant neoplasm of breast
CPT/HCPCS: 77063; 77067

== ENCOUNTER → 2023-04-23 | Outpatient (CLI) | payer MEDICARE ==
--- NOTE | 2023-04-23 10:49 | MM ---
Reason for Exam: Additional evaluation requested from abnormal screening. Last screening mammogram was performed less than 1 month ago. Patient History: Menarche at age 13. First Full-Term at age 19. Left ovary removed at age 42. Right ovary removed at age 42. Hysterectomy at age 42. Postmenopausal. Other cancer. Estrogen for 6 years, 6 months. Maternal grandmother had breast cancer under age 50. Sister had breast cancer under age 50. Mother had breast cancer, age 30. Mother had breast cancer, age 80. Risk Values: Nicolette 5 year model risk: 6.3%. NCI Lifetime model risk: 19.2%. Prior Study Comparison: 04/03/2021 Bilateral Screening Mammogram, [facility]. 04/06/2022 Bilateral MG screening mammo w CAD, [facility]. 04/21/2023 Bilateral MG 3D screening mammo w/cad, [facility]. Tissue Density: Left: There are scattered fibroglandular densities. Findings: Analyzed By CAD. Pattern appears stable. A faint ill-defined 1.1 cm densities in the upper outer aspect left breast. This remains present on compression. Additional workup with ultrasound is recommended. Overall Assessment: Incomplete: need additional imaging evaluation, BI-RAD 0 Management: Diagnostic Breast Ultrasound of the left breast. A negative mammogram report should not preclude additional follow up of suspicious palpable abnormalities. Patient should continue monthly self breast exam. A clinical breast exam by your physician is recommended on an annual basis and results should be correlated with mammographic findings. Electronically signed and approved by: Deny Mon D.O. Radiologis
--- NOTE | 2023-04-23 13:21 | USB ---
Reason for Exam: Additional evaluation requested from abnormal screening. Patient History: Menarche at age 13. First Full-Term at age 19. Left ovary removed at age 42. Right ovary removed at age 42. Hysterectomy at age 42. Postmenopausal. Other cancer. Estrogen for 6 years, 6 months. Maternal grandmother had breast cancer under age 50. Sister had breast cancer under age 50. Mother had breast cancer, age 30. Mother had breast cancer, age 80. Risk Values: Nicolette 5 year model risk: 6.3%. NCI Lifetime model risk: 19.2%. Technique: Method: Targeted. Prior Study Comparison: 04/03/2021 Bilateral Screening Mammogram, [facility]. 04/06/2022 Bilateral MG screening mammo w CAD, [facility]. 04/21/2023 Bilateral MG 3D screening mammo w/cad, [facility]. Findings: The upper outer quadrant of the left breast, the axilla of the left breast and the retroareolar of the left breast were scanned. Normal left axillary lymph node appears to be present. No cortical thickening is evident. There is a small cluster of microcysts at the posterior left breast 2:00 position 7 cm from nipple. This may correlate with the mammographic finding. Short-term follow-up is recommended. Overall Assessment: Probably benign, BI-RAD 3 Management: Diagnostic Mammogram of the left breast in 6 months. Diagnostic Breast Ultrasound of the left breast in 6 months. A clinical breast exam by your physician is recommended on an annual basis and results should be correlated with mammographic findings. This exam should not preclude additional follow-up of suspicious palpable abnormalities. Results were given to the patient verbally at the time of exam. Electronically signed and approved by: Deny Mon D.O. Radiologis
== END | disposition home or self-care (01) ==
LOC: RADMAMWWP 09:43
PROVIDERS: ATTEND Family Medicine
DX: R92.8 Other abnormal and inconclusive findings on diagnostic imaging of breast (principal); Z80.3 Family history of malignant neoplasm of breast; Z78.0 Asymptomatic menopausal state
CPT/HCPCS: 77061; 77065

== ENCOUNTER → 2023-05-07 | Outpatient (CLI) | payer MEDICARE | END | disposition home or self-care (01) | LOC: LABWHC1 06:56 | PROVIDERS: ATTEND Otolaryngology | DX: E04.1 Nontoxic single thyroid nodule (principal); R53.83 Other fatigue | CPT/HCPCS: 36415; 86376 ==

== ENCOUNTER 2023-05-21 12:47 | Day surgery (SDC) | payer MEDICARE ==
[2023-05-21 13:40] VITALS: BP 135/73; PULSE 69; RESP 18
--- NOTE | 2023-05-26 10:14 | US ---
EXAM: US discontinued FNA panel DATE OF EXAM: 05/21/2023 2:36 PM COMPARISON STUDIES: 12/09/2022 PATIENT HISTORY: Thyroid nodule FINDINGS: Patient presented for possible biopsy of a described right thyroid nodule. At the time of the imaging however a distinct nodule could not be identified with certainty and therefore biopsy was discontinued. Procrit follow-up is advised. RECOMMENDATION: Discontinued thyroid biopsy. Appropriate follow-up is recommended. .
== END 2023-05-21 14:35 | disposition home or self-care (01) ==
LOC: RADPROMAIN 12:47
PROVIDERS: ATTEND Otolaryngology
DX: E04.1 Nontoxic single thyroid nodule (principal)
CPT/HCPCS: 76536

== ENCOUNTER → 2023-06-04 | Outpatient (CLI) | payer MEDICARE | END | disposition home or self-care (01) | LOC: LABWHC1 09:23 | PROVIDERS: ATTEND Otolaryngology | DX: M25.50 Pain in unspecified joint (principal); R53.83 Other fatigue | CPT/HCPCS: 36415; 85652; 86038; 86431 ==

== ENCOUNTER → 2023-09-24 | Outpatient (CLI) | payer MEDICARE ==
--- NOTE | 2023-09-25 17:00 | MR ---
EXAMINATION TYPE: MR knee RT wo con DATE OF EXAM: 09/24/2023 COMPARISON: None HISTORY: Pain right knee TECHNIQUE: Multiplanar, multisequence imaging of the right knee is performed without IV contrast. FINDINGS: There is no fracture. There is mild edema in the posterior medial tibial plateau and there is a mild strain of the medial collateral ligament which is intact. The cruciate and lateral collateral ligamen t are intact. There is marked soft tissue inflammation surrounding the iliotibial band with mild thickening of the iliotibial band consistent with severe iliotibial band syndrome. There is a small joint effusion. There is no meniscal injury. The joint spaces and articular cartilages within normal limits in all 3 compartments of the knee.. IMPRESSION: 1. Mild contusion of the medial tibial plateau and mild strain of the medial collateral ligament. 2. Severe ITB band syndrome. 3. Small joint effusion. 4. No ligamentous or meniscal injury.
== END | disposition home or self-care (01) ==
LOC: RADMRIMAIN 15:27
PROVIDERS: ATTEND Internal Medicine Rheumatology
DX: S80.01XA Contusion of right knee, initial encounter (principal); M25.461 Effusion, right knee; M76.31 Iliotibial band syndrome, right leg

== ENCOUNTER → 2024-05-18 | Outpatient (CLI) | payer MEDICARE | END | disposition home or self-care (01) | LOC: LABPRL 11:25 | PROVIDERS: ATTEND Nurse Practitioner | DX: L01.01 Non-bullous impetigo | CPT/HCPCS: 87070; 87205 ==

== ENCOUNTER → 2025-04-10 | Outpatient (CLI) | payer MEDICARE ==
--- NOTE | 2025-04-10 11:01 | MM ---
Reason for Exam: Screening (asymptomatic). Last mammogram was performed 2 year(s) and 0 month(s) ago. Patient History: Menarche at age 13. First Full-Term at age 19. Left ovary removed at age 42. Right ovary removed at age 42. Hysterectomy at age 42. Postmenopausal. Other cancer. Estrogen for 6 years, 6 months. Maternal grandmother had breast cancer under age 50. Sister had breast cancer, age 38. Mother had breast cancer, age 30. Mother had breast cancer, age 80. Risk Values: Nicolette 5 year model risk: 6.4%. NCI Lifetime model risk: 17.6%. Prior Study Comparison: 04/06/2022 Bilateral MG screening mammo w CAD, [facility]. 04/21/2023 Bilateral MG 3D screening mammo w/cad, [facility]. 04/23/2023 Left MG 3D work up w/cad , [facility]. Tissue Density: There are scattered areas of fibroglandular density. Findings: Analyzed By CAD. There is no suspicious group of microcalcifications or new suspicious mass in either breast. Overall Assessment: Negative, BI-RAD 1 Management: Screening Mammogram of both breasts in 1 year. See note below in regards to the patient's increased 5 year Nicolette score. Patient should continue monthly self-breast exams. A clinical breast exam by your physician is recommended on an annual basis. This exam should not preclude additional follow-up of suspicious palpable abnormalities. Note on Nicolette scores and lifetime risk: 1. A Nicolette score greater than 3% is considered moderate risk. If this is the case, consider specialist referral to assess eligibility for a risk reducing agent. 2. If overall lifetime risk for the development of breast cancer is 20% or higher, the patient may qualify for future screening with alternating mammogram and breast MRI. [facility], , 04/10/2025 10:58 AM. Electronically signed and approved by: Cadence Santillan M.D. Radiologist
== END | disposition home or self-care (01) ==
LOC: RADMAMWWP 07:00
PROVIDERS: ATTEND Internal Medicine
DX: Z12.31 Encounter for screening mammogram for malignant neoplasm of breast (principal); R92.323 Mammographic fibroglandular density, bilateral breasts; Z78.0 Asymptomatic menopausal state; Z80.3 Family history of malignant neoplasm of breast
CPT/HCPCS: 77067